=== PATIENT | female | born 1935 | race Two or more races ===

== ENCOUNTER 2022-05-23 09:30 | Inpatient (IN) | payer MEDICARE, MEDICAID ==
[2022-05-16 15:33] LABS: BASOPHILS % (AUTO) 0.4 % (0-1); EOSINOPHILS # (AUTO) 0.1 X10'3 (0-0.9); LYMPHOCYTES # (AUTO) 1.9 X10'3 (1.1-4.8); LYMPHOCYTES % (AUTO) 28.2 % (21-51); MEAN CORPUSCULAR HEMOGLOBIN 29.5 PG (27.0-31.0); MEAN CORPUSCULAR HGB CONC 33.5 g/dL (33.0-36.5); MEAN CORPUSCULAR VOLUME 88.2 FL (78-98); MEAN PLATELET VOLUME 6.9 FL (7.4-10.4); MONOCYTES # (AUTO) 0.7 X10'3 (0-0.9); NEUTROPHILS # (AUTO) 3.9 X10'3 (1.8-7.7); NEUTROPHILS % (AUTO) 59.4 % (42-75); PRE OP HEMATOCRIT 35.3 % (35.0-45.0); PRE OP HEMOGLOBIN 11.8 g/dL (12.0-16.0); PRE OP PLATELET COUNT 315 X10'3 (140-440); RED BLOOD COUNT 4.01 X10'6 (4.20-5.60); RED CELL DISTRIBUTION WIDTH 13.9 % (11.5-14.5)
[2022-05-16 15:56] LABS: ALBUMIN 3.4 G/DL (3.4-5.0); ALBUMIN/GLOBULIN RATIO 0.9 (1.1-1.5); ALKALINE PHOSPHATASE 63 IU/L (46-116); BLOOD UREA NITROGEN 15 MG/DL (7-18); BUN/CREATININE RATIO 20.3 (6.6-38.0); CALCIUM 8.5 MG/DL (8.5-10.1); CHLORIDE 97 MMOL/L (99-107); CREATININE 0.74 MG/DL (0.40-0.90); PRE OP ALT 19 U/L (30-65); PRE OP ANION GAP 7 (8-16); PRE OP AST 19 U/L (10-37); PRE OP BILIRUB, TOTAL 0.3 MG/DL (0.0-1.0); PRE OP GLUCOSE 91 MG/DL (70-104); PRE OP POTASSIUM 4.5 MMOL/L (3.4-5.1); PRE OP SODIUM 133 MMOL/L (135-145); TOTAL CARBON DIOXIDE 29.2 MMOL/L (24-32); eGFR 75 ML/MIN
[2022-05-23] VITALS (20 sets, daily range): BP systolic 130–237; BP diastolic 52–88
[~2022-05-23] VITALS: Ht 149.9 cm; Wt 66.5 kg
[~2022-05-23 09:30] MED LIST: CITA20TA28 PO; LEVO75TA7 PO; LOSA50TA64 PO; PANT20TA18 PO; ceFAZolin inj. 2,000 MG in dextrose 5%-water 100 ML IV ONE; famotidine 20mg tablet PO ONE; ringers solution, lacted 1,000 ML IV SCH; tranexamic acid 650mg tablet PO ONE; vancomycin/NS 1 GM in NS 250 ML IV ONE
[2022-05-23 13:03] LABS: ISTAT ANION GAP 9 (8-12); ISTAT BUN 9 mg/dL (7-18); ISTAT CL 97 mmol/L (99-107); ISTAT CREATININE 0.6 mg/dL (0.6-1.1); ISTAT GLUCOSE 79 mg/dL (70-105); ISTAT HGB 11.2 g/dl (12.0-16.0); ISTAT Hct 33 %PCV (35-48); ISTAT IONIZED CALCIUM 1.12 mmol/L (1.03-1.32); ISTAT K 4.5 mmol/L (3.5-5.1); ISTAT NA 132 mmol/L (135-145); ISTAT TOTAL CO2 26 mmol/L (24-32); ISTAT eGFR > 90 ML/MIN
[2022-05-23] MEDS ORDERED: ketorolac trometh. 30mg/ml inj. ONE (14:33)
[2022-05-23] MEDS ORDERED: ROPIVAcaine 0.5% (5mg/ml) 30ml vial ONE ×2 (14:34→16:44)
[2022-05-23] MEDS ORDERED: fentaNYL/PF 50MCG/1 ML 2ML syringe ONE (14:41)
[2022-05-23] MEDS ORDERED: MIDAZolam 1 MG/ML 5ML VIAL ONE (14:41)
[2022-05-23] MEDS ORDERED: meperidine/PF 25mg/ml syringe IV PRN ×3 (16:10)
[2022-05-23] MEDS ORDERED: morphine 4 MG/ML inj SYRINge IV PRN (16:10)
[2022-05-23] MEDS ORDERED: morphine 2 MG/ML inj. syringe IV PRN (16:10)
[2022-05-23] MEDS ORDERED: ondansetron/PF 4mg/2ml inj IV PRN ×2 (16:10→16:55)
[2022-05-23] MEDS ORDERED: ketorolac trometh. 30mg/ml inj. IU ONE (16:10)
[2022-05-23] MEDS ORDERED: ringers solution, lacted 1,000 ML IV SCH (16:10)
[2022-05-23] MEDS ORDERED: ROPIVAcaine 0.5% (5mg/ml) 30ml vial IJ ONE (16:10)
[2022-05-23] MEDS ORDERED: proCHLORperazine 10 MG/2 ml inj IV PRN (16:10)
[2022-05-23] MEDS ORDERED: propofol inj 20 ML IV ONE (16:44)
[2022-05-23] MEDS ORDERED: acetaminophen 325mg tablet PO PRN (16:55)
[2022-05-23] MEDS ORDERED: naloxone 0.4 mg/ml inj IV PRN (16:55)
[2022-05-23] MEDS ORDERED: diphenhydrAMINE 25mg capsule PO PRN ×2 (16:55)
[2022-05-23] MEDS ORDERED: HYDROmorphone inj. 0.5 MG/0.5 ML DISP.SYRIN IV PRN (16:55)
[2022-05-23] MEDS ORDERED: oxyCODONE IR 5mg (immed. release) tablet PO PRN (16:55)
[2022-05-23] MEDS ORDERED: HYDROmorphone 1 mg/ml syringe IV PRN (16:55)
[2022-05-23] MEDS ORDERED: bisacodyl 10mg suppository rectal RC PRN (16:55)
[2022-05-23] MEDS ORDERED: magnesium hydroxide 30ml (MOM) UD suspension PO PRN (16:55)
--- NOTE | 2022-05-23 17:12 | NUR ---
Received from OR via SURGICAL BED WITH MAREK , accompanied by Anesthesiologist FIORDALIZA and report given by Anesthesiolgist.SANDRA WITH 20G PIV IN RIGHT UR RUNNING LR AT 100. DENIES PAIN. SENSATION FROM SPINAL ANESTHESIA WAS L1-2 PATIENT VSS AT THIS TIME. PAMELA ONTIVEROS DONNED FOR COMFORT. KNEE WRAP AND ICE PACK PRESENT TO RIGHT KNEE. + DP PRESENT. SCDS DONNED UPON ARRIVAL. Addendum: 05/23/22 at 1735 by Juan Stewart RN, RN Amended: Links added.
[2022-05-23] MEDS ORDERED: losartan 25mg tablet PO ONE ×2 (18:05→18:50)
--- NOTE | 2022-05-23 18:05 | NUR ---
MD BARILLAS CALLED REGARDING BP OF 204/82 INFORMED PATIENT HAS NO PAIN HOWEVER HAS SUSTAINED SBP IN 200'S SINCE ARRIVAL TO THE . OFFERED HOSPITALIST AN OPTION TO CONTROL BP - DECLINED AND STATES TO TRY ANOTHER DOSE OF LOSARTAN 50 MG NOW. HOME MED LIST SHOWS SHE TAKES THIS AT HOME. MED ORDERED. AWAITING PHARMACY TO DELIVER [facility] GOAL OF THERAPY FOR 150 SBP OR BELOW. Addendum: 05/23/22 at 1807 by Juan Stewart RN, RN Amended: Links added.
--- NOTE | 2022-05-23 18:42 | NUR ---
CARE OF PATIENT AND REPORT HAS BEEN CALLED. ALL QUESTIONS ANSWERED TO ACCEPTING RN. PATIENT HAS MET ALL CRITERIA FOR TRANSFER TO [facility] FLO[facility]. VSS. DRESSINGS INTACT. BED LOW, CALL LIGHT PRESENT AND 2 RAILS UP. ROSEMARY BROWN PRESENT TO ACCEPT AND ASSIST WITH SET UP WELL ASSESS PATIENT. DAUGHTERS Romaine PRESENT TO SEE PATIENT. 2 BAGS OF LABELED BELONGINGS AT BEDSIDE. Addendum: 05/23/22 at 1850 by Juan Ray - ROSEMARY RN Amended: Links added.
[2022-05-23] MEDS ORDERED: losartan 50mg tablet PO ONE (18:50)
[2022-05-23] MEDS ORDERED: vancomycin/NS 1 GM ADD-VANTAGE 250 ML IV SCH (20:00)
[2022-05-23] MEDS: potassium cl 20mEq in 1/2 NS 1,000 ML IV SCH (20:37)
[2022-05-23] MEDS: sennosides 8.6mg tablet PO SCH (20:38)
[2022-05-23] MEDS: acetaminophen 325mg tablet PO SCH (20:38)
[2022-05-23] MEDS: ceFAZolin/D5W- 1GM premix 50 ML IV SCH (23:54)
[2022-05-24] MEDS: potassium cl 20mEq in 1/2 NS 1,000 ML IV SCH ×3 (00:55→15:46)
[2022-05-24] MEDS: acetaminophen 325mg tablet PO SCH ×4 (02:00→21:07)
[2022-05-24 03:10] VITALS: BP 119/50
[2022-05-24 07:03] LABS: BASOPHILS % (AUTO) 0.5 % (0-1); EOSINOPHILS # (AUTO) 0.1 X10'3 (0-0.9); EOSINOPHILS % (AUTO) 1.2 % (0-6); HEMATOCRIT 28.1 % (35.0-45.0); HEMOGLOBIN 9.6 g/dl (12.0-16.0); LYMPHOCYTES # (AUTO) 1.2 X10'3 (1.1-4.8); MEAN CORPUSCULAR HEMOGLOBIN 30.2 PG (27.0-31.0); MEAN CORPUSCULAR HGB CONC 34.3 g/dL (33.0-36.5); MEAN CORPUSCULAR VOLUME 88.1 FL (78-98); MEAN PLATELET VOLUME 7.2 FL (7.4-10.4); MONOCYTES # (AUTO) 0.7 X10'3 (0-0.9); MONOCYTES % (AUTO) 9.6 % (2-12); NEUTROPHILS # (AUTO) 5.3 X10'3 (1.8-7.7); NEUTROPHILS % (AUTO) 72.7 % (42-75); PLATELET COUNT 287 X10'3 (140-440); RED BLOOD COUNT 3.19 X10'6 (4.20-5.60); RED CELL DISTRIBUTION WIDTH 14.2 % (11.5-14.5); WHITE BLOOD COUNT 7.3 X10'3 (4.5-11.0)
[2022-05-24] MEDS: aspirin 325mg tablet PO SCH (07:37)
[2022-05-24] MEDS: ceFAZolin/D5W- 1GM premix 50 ML IV SCH (07:37)
[2022-05-24] MEDS: pantoprazole 40mg Tablet.DR PO SCH (07:37)
[2022-05-24] MEDS: citalopram 20mg tablet PO SCH (07:37)
[2022-05-24] MEDS: levoTHYROXINE 75mcg tablet PO SCH (07:37)
[2022-05-24 07:40] VITALS: BP 124/54
[2022-05-24] MEDS: losartan 50mg tablet PO SCH (07:44)
[2022-05-24 08:30] LABS: ANION GAP 8 (8-16); CHLORIDE 101 MMOL/L (99-107); POTASSIUM 4.8 MMOL/L (3.5-5.1); SODIUM 134 MMOL/L (135-145); TOTAL CARBON DIOXIDE 24.8 MMOL/L (24-32)
[2022-05-24] MEDS: oxyCODONE IR 5mg (immed. release) tablet PO PRN ×3 (10:11→21:06)
[2022-05-24 10:26] VITALS: BP 97/43
--- NOTE | 2022-05-24 13:05 | NUR ---
Noted pt s/p right TKA. Written protein education with RD contact information placed in patient's chart. Will remain available. Addendum: 05/24/22 at [address] Amended: Links added.
[2022-05-24 15:01] VITALS: BP 150/48
--- NOTE | 2022-05-24 18:17 | NUR ---
Problems reprioritized. Patient report given, questions answered & plan of care reviewed with ROSEMARY Limon.
[2022-05-24 18:20] VITALS: BP 159/54
[2022-05-24] MEDS: sennosides 8.6mg tablet PO SCH (21:07)
[2022-05-24 22:00] VITALS: BP 173/58
[2022-05-25] MEDS: potassium cl 20mEq in 1/2 NS 1,000 ML IV SCH ×2 (00:55→08:55)
[2022-05-25] MEDS: acetaminophen 325mg tablet PO SCH ×3 (02:00→13:57)
[2022-05-25] MEDS: oxyCODONE IR 5mg (immed. release) tablet PO PRN ×4 (05:36→22:08)
[2022-05-25 06:00] VITALS: BP 166/49
--- NOTE | 2022-05-25 06:35 | NUR ---
Patient in room ORTHO 4011. I have received report from ROSEMARY Limon and had the opportunity to ask questions and assume patient care.
[2022-05-25 06:45] LABS: BASOPHILS % (AUTO) 0.3 % (0-1); EOSINOPHILS % (AUTO) 0.6 % (0-6); HEMATOCRIT 24.7 % (35.0-45.0); HEMOGLOBIN 8.6 g/dl (12.0-16.0); LYMPHOCYTES # (AUTO) 1.4 X10'3 (1.1-4.8); LYMPHOCYTES % (AUTO) 19.3 % (21-51); MEAN CORPUSCULAR HEMOGLOBIN 30.6 PG (27.0-31.0); MEAN CORPUSCULAR HGB CONC 34.9 g/dL (33.0-36.5); MEAN CORPUSCULAR VOLUME 87.6 FL (78-98); MEAN PLATELET VOLUME 7.4 FL (7.4-10.4); MONOCYTES % (AUTO) 12.9 % (2-12); NEUTROPHILS % (AUTO) 66.9 % (42-75); PLATELET COUNT 261 X10'3 (140-440); RED BLOOD COUNT 2.82 X10'6 (4.20-5.60); RED CELL DISTRIBUTION WIDTH 13.8 % (11.5-14.5); WHITE BLOOD COUNT 7.5 X10'3 (4.5-11.0)
[2022-05-25] MEDS: aspirin 325mg tablet PO SCH (09:06)
[2022-05-25] MEDS: citalopram 20mg tablet PO SCH (09:06)
[2022-05-25] MEDS: losartan 50mg tablet PO SCH (09:07)
[2022-05-25] MEDS: levoTHYROXINE 75mcg tablet PO SCH (09:07)
[2022-05-25] MEDS: pantoprazole 40mg Tablet.DR PO SCH (09:07)
[2022-05-25 10:00] VITALS: BP 123/44
[2022-05-25] MEDS ORDERED: acetaminophen 325mg tablet PO PRN (16:55)
--- NOTE | 2022-05-25 18:22 | NUR ---
Problems reprioritized. Patient report given, questions answered & plan of care reviewed with ROSEMARY Limon.
[2022-05-25 18:26] VITALS: BP 105/75
[2022-05-25] MEDS: sennosides 8.6mg tablet PO SCH (22:08)
[2022-05-25 22:44] VITALS: BP 132/42
[2022-05-26 05:00] VITALS: BP 145/59
[2022-05-26] MEDS: oxyCODONE IR 5mg (immed. release) tablet PO PRN ×3 (05:41→14:58)
--- NOTE | 2022-05-26 06:16 | NUR ---
Patient in room ORTHO 4011. I have received report from Ashly RILEY and had the opportunity to ask questions and assume patient care.
[2022-05-26 06:20] LABS: BASOPHILS % (AUTO) 0.1 % (0-1); EOSINOPHILS # (AUTO) 0.1 X10'3 (0-0.9); EOSINOPHILS % (AUTO) 1.4 % (0-6); HEMATOCRIT 22.7 % (35.0-45.0); LYMPHOCYTES # (AUTO) 1.2 X10'3 (1.1-4.8); LYMPHOCYTES % (AUTO) 15.1 % (21-51); MEAN CORPUSCULAR HEMOGLOBIN 30.8 PG (27.0-31.0); MEAN CORPUSCULAR HGB CONC 35.3 g/dL (33.0-36.5); MEAN CORPUSCULAR VOLUME 87.1 FL (78-98); MEAN PLATELET VOLUME 7.1 FL (7.4-10.4); MONOCYTES # (AUTO) 0.9 X10'3 (0-0.9); MONOCYTES % (AUTO) 11.2 % (2-12); NEUTROPHILS # (AUTO) 5.6 X10'3 (1.8-7.7); NEUTROPHILS % (AUTO) 72.2 % (42-75); PLATELET COUNT 255 X10'3 (140-440); RED BLOOD COUNT 2.61 X10'6 (4.20-5.60); RED CELL DISTRIBUTION WIDTH 13.9 % (11.5-14.5); WHITE BLOOD COUNT 7.8 X10'3 (4.5-11.0)
[2022-05-26] MEDS: levoTHYROXINE 75mcg tablet PO SCH (07:50)
[2022-05-26] MEDS: citalopram 20mg tablet PO SCH (07:50)
[2022-05-26] MEDS: losartan 50mg tablet PO SCH (07:50)
[2022-05-26] MEDS: pantoprazole 40mg Tablet.DR PO SCH (07:50)
[2022-05-26] MEDS: aspirin 325mg tablet PO SCH (09:35)
[2022-05-26 10:00] VITALS: BP 126/41
--- NOTE | 2022-05-26 15:30 | NUR ---
Called report to [facility]
--- NOTE | 2022-06-03 13:54 | NUR ---
Case Management DC follow up: [facility]
== END 2022-05-26 16:10 | DRG 470 ==
LOC: PAS IN 10:43 → ORTHO 4S 19:30
PROVIDERS: ATTEND Orthopaedic Surgery
PROC: 8E0YXBZ Computer Assisted Procedure of Lower Extremity (ICD-10-PCS; 2022-05-23)
PROC: 8E0Y0CZ Robotic Assisted Procedure of Lower Extremity, Open Approach (ICD-10-PCS; 2022-05-23)
PROC: 3E0T3BZ Introduction of Anesthetic Agent into Peripheral Nerves and Plexi, Percutaneous Approach (ICD-10-PCS; 2022-05-23)
PROC: 3E0T33Z Introduction of Anti-inflammatory into Peripheral Nerves and Plexi, Percutaneous Approach (ICD-10-PCS; 2022-05-23)
PROC: 0SRC0J9 Replacement of Right Knee Joint with Synthetic Substitute, Cemented, Open Approach (ICD-10-PCS; principal; 2022-05-23 14:55)
DX: M17.11 Unilateral primary osteoarthritis, right knee (principal); M21.061 Valgus deformity, not elsewhere classified, right knee; Z20.822 Contact with and (suspected) exposure to COVID-19; I10 Essential (primary) hypertension; K21.9 Gastro-esophageal reflux disease without esophagitis; F41.9 Anxiety disorder, unspecified; F32.A Depression, unspecified
CPT/HCPCS: 36415; 80047; 80051; 80053; 84443; 85025; 87081; 87811; 97110; 97116; 97161; 97530; A4215; A4615; A6258; A6449; A7000; C1713; C1758; C1776; G0378; J0690; J1170; J1885; J2250; J2704; J2795; J3010; J3370; J3480; J7060; J7120